=== PATIENT | male | born 1975 | race Two or more races ===

== ENCOUNTER 2025-10-09 13:06 | Emergency (ER) | payer MEDICARE, OTHER ==
[~2025-10-09] VITALS: Ht 175.3 cm; Wt 113.6 kg
[2025-10-09 13:49] VITALS: TEMP 98.1
[2025-10-09] MEDS ORDERED: LISI-894 PO (15:30)
[2025-10-09 15:35] LABS: PLATELET COUNT (AUTO) 188 K/uL (150-450); RED BLOOD CELL COUNT(AUTO) 4.78 MIL/uL (4.50-5.90); RED CELL DISTRIBUTION WIDTH 13.7 % (11.5-14.5); WHITE BLOOD COUNT (AUTO) 10.2 K/uL (4.5-11.0)
[2025-10-09] MEDS ORDERED: RISP2TAB45 PO (15:40)
[2025-10-09] MEDS ORDERED: DIVA-153 PO (15:40)
[2025-10-09] MEDS ORDERED: BENZ2TAB84 PO (15:40)
[2025-10-09] MEDS ORDERED: METF-910 PO (15:40)
[2025-10-09 15:41] LABS: CALCIUM, TOTAL 9.2 mg/dL (8.8-10.5); CREATININE 0.83 mg/dL (0.60-1.30); GLOMERULAR FILTR. RATE CALC > 60 mL/min (>60); GLUCOSE,RANDOM 115 mg/dL (70-110); SODIUM SERUM 143 mmol/L (136-145); UREA NITROGEN, BLOOD 14 mg/dL (7-18)
[2025-10-09] MEDS ORDERED: LORA1TAB25 PO (15:48)
[2025-10-09] MEDS ORDERED: ROSU10TA98 PO (15:48)
[2025-10-09] MEDS ORDERED: L. R1TAB PO (15:48)
[2025-10-09] MEDS ORDERED: AMLO-142 PO (15:48)
[2025-10-09] MEDS ORDERED: LOPE-232 PO (16:10)
[2025-10-09] MEDS ORDERED: ACET-66 PO (16:10)
[2025-10-09] MEDS ORDERED: MAGN100T PO (16:10)
[2025-10-09] MEDS ORDERED: ALBU18HF12 IH (16:10)
[2025-10-09] MEDS ORDERED: [UNRECOGNIZED DRUG - CODE] IH (16:10)
[2025-10-09 16:24] LABS: TROPONIN I-HIGH SENSITIVITY 6 ng/L (<76)
[2025-10-09 16:40] LABS: PH,URINE DRUG SCREEN 6.5 (5.0-8.0)
[2025-10-09 16:55] LABS: ALCOHOL, URINE DRUG SCREEN NEGATIVE (NEGATIVE); AMPHET/METH SCREEN,URINE NEGATIVE (NEGATIVE); BARBITURATE SCREEN, URINE NEGATIVE (NEGATIVE); CANNABINOID SCREEN,URINE POSITIVE (NEGATIVE); COCAINE SCREEN,URINE NEGATIVE (NEGATIVE); METHADONE SCREEN, URINE NEGATIVE (NEGATIVE)
[2025-10-09 18:30] VITALS: BP 141/78; PULSE 82; RESP 20; O2SAT 91
== END 2025-10-09 22:30 | disposition home or self-care (01) ==
LOC: EMS 13:06
DX: F41.9 Anxiety disorder, unspecified (principal); T40.715A Adverse effect of cannabis, initial encounter; E11.9 Type 2 diabetes mellitus without complications; F20.9 Schizophrenia, unspecified; Z88.1 Allergy status to other antibiotic agents; Z88.2 Allergy status to sulfonamides; Z88.5 Allergy status to narcotic agent; Z91.013 Allergy to seafood; Z79.899 Other long term (current) drug therapy; Y92.89 Other specified places as the place of occurrence of the external cause
CPT/HCPCS: 80048; 80307; 82962; 84484; 85025; 93005; 99284